=== PATIENT | male | born 1980 | race Caucasian/White ===

== ENCOUNTER 2017-05-31 11:22 | Emergency (ER) | payer SELFPAY ==
[2017-05-31] MEDS: SOD CHLORIDE 0.9% 1,000 ML IV ×2 (12:09→14:03)
[2017-05-31] MEDS: LORAZEPAM 2 MG INJ IV ×2 (13:03→14:03)
[2017-05-31] MEDS: THIAMINE 100 MG TAB PO (15:43)
[2017-05-31] MEDS: FOLIC ACID 1 MG TAB PO (15:43)
== END 2017-05-31 18:57 | disposition home or self-care (01) ==
LOC: E/R 11:22
DX: F10.929 Alcohol use, unspecified with intoxication, unspecified (principal); W18.09XA Striking against other object with subsequent fall, initial encounter; Y92.9 Unspecified place or not applicable
CPT/HCPCS: 70450; 72125; 96374; 99285-25